=== PATIENT | male | born 1975 | race Caucasian/White ===

== ENCOUNTER 2017-03-29 23:23 | Inpatient (IN) | payer MEDICAID ==
[~2017-03-29] VITALS: Ht 188 cm; Wt 59.1 kg
[2017-03-30] MEDS ORDERED: ZOLPIDEM TARTRATE 10 MG TABLET PO PRN (00:45)
[2017-03-30 01:23] VITALS: BP 131/68
[2017-03-30 08:11] VITALS: BP 122/70
[2017-03-30] MEDS: NICOTINE 21 MG/24 HOUR PATCH TD SCH (09:28)
[2017-03-30 16:03] VITALS: BP 100/60
[2017-03-30] MEDS: METHADONE HCL 10 MG TABLET PO SCH (18:26)
[2017-03-30] MEDS: HALOPERIDOL 5 MG TABLET PO PRN (18:27)
[2017-03-31 07:05] VITALS: BP 102/62
[2017-03-31 08:20] LABS: BASOPHILS % (AUTO) 0.8 % (0.0-2.0); HEMATOCRIT 42.9 % (41-53); HEMOGLOBIN 13.8 g/dL (13.5-17.5); LYMPHOCYTES # (AUTO) 1.7 K/uL (1.0-4.8); LYMPHOCYTES % (AUTO) 21.5 % (22.0-44.0); MEAN CORPUSCULAR HEMOGLOBIN 31.5 pg (26.0-34.0); MEAN CORPUSCULAR HGB CONC 32.2 G/dL (31.0-37.0); MEAN CORPUSCULAR VOLUME 98 fL (80-100); MONOCYTES # (AUTO) 0.6 K/uL (0.1-1.0); MONOCYTES % (AUTO) 8.2 % (2.0-9.0); NEUTROPHILS # (AUTO) 5.4 K/uL (1.8-7.7); NEUTROPHILS % (AUTO) 68.5 % (40.0-70.0); PLATELET COUNT (AUTO) 273 K/uL (150-450); RED BLOOD CELL COUNT(AUTO) 4.38 MIL/uL (4.50-5.90); RED CELL DISTRIBUTION WIDTH 16.5 % (11.5-14.5); WHITE BLOOD COUNT (AUTO) 7.9 K/uL (4.5-11.0)
[2017-03-31 08:40] LABS: HEMOGLOBIN A1C 5.2 % (4.5-6.2)
[2017-03-31] MEDS: METHADONE HCL 10 MG TABLET PO SCH (08:42)
[2017-03-31] MEDS: NICOTINE 21 MG/24 HOUR PATCH TD SCH (08:42)
[2017-03-31 08:47] LABS: ALANINE AMINOTRANSFERASE 21 U/L (12-78); ALBUMIN 3.4 g/dL (3.4-5.0); ANION GAP 5 mmol/L (8-16); ASPARTATE AMINOTRANSFERASE 12 U/L (15-37); BILIRUBIN,TOTAL 0.7 mg/dL (0.1-1.0); CALCIUM, TOTAL 9.2 mg/dL (8.8-10.5); CARBON DIOXIDE 32 mmol/L (22-29); CHLORIDE 109 mmol/L (98-107); CHOL/HDL RATIO 1.6 (4.2-7.3); CREATININE 1.05 mg/dL (0.60-1.30); GLOMERULAR FILTR. RATE CALC > 60 mL/min (>60); POTASSIUM 4.1 mmol/L (3.5-5.1); SODIUM SERUM 146 mmol/L (136-145); THYROID STIMULATING HORMONE 0.82 uIU/mL (0.36-3.74); TOTAL PROTEIN, SERUM 6.7 g/dL (6.4-8.2); UREA NITROGEN, BLOOD 18 mg/dL (7-18)
[2017-03-31 09:28] VITALS: BP 109/67
[2017-03-31] MEDS: HALOPERIDOL 5 MG TABLET PO PRN (10:01)
[2017-04-01 11:17] LABS: HEPATITIS Bs ANTIGEN SCREEN P Negative (Negative); HEPATITIS C AB SCREEN <0.1 s/co ratio (0.0-0.9)
== END 2017-03-31 13:10 | disposition home or self-care (01) | DRG 754 ==
LOC: EDSTATUS 23:40 → B2S 03-30 00:43
PROVIDERS: ADMIT Psychiatry & Neurology Psychiatry; ATTEND Psychiatry & Neurology Psychiatry
DX: F32.9 Major depressive disorder, single episode, unspecified (principal); F11.10 Opioid abuse, uncomplicated; Z59.0 Homelessness; Z72.0 Tobacco use; Z82.49 Family history of ischemic heart disease and other diseases of the circulatory system
CPT/HCPCS: 80074; 82306; 82607; 82746; 83036; 83735; 84439; 84443